=== PATIENT | female | born 2000 | race African-American/Black ===

== ENCOUNTER 2021-08-27 04:22 | Inpatient (IN) | payer OTHER ==
[2021-08-27 04:51] VITALS: BMI 31.6
[2021-08-27] MEDS ORDERED: Ondansetron PF 4 MG/2 ML Vial IVP PRN ×2 (04:55→07:22)
[2021-08-27] MEDS ORDERED: Butorphanol Tartrate 1 MG/ML VIAL SLOW IVP PRN (04:55)
[2021-08-27] MEDS ORDERED: Promethazine HCl 25 MG/ML VIAL IM PRN ×2 (04:55→07:22)
[2021-08-27] MEDS ORDERED: Ibuprofen 800 MG TAB PO PRN (04:55)
[2021-08-27] MEDS ORDERED: Acetaminophen 500 MG TAB PO PRN (04:55)
[2021-08-27] MEDS ORDERED: hydrALAZINE 20 MG/ML VIAL SLOW IVP PRN ×2 (04:55→07:22)
[2021-08-27] MEDS ORDERED: Lidocaine 1% (PF) 30 ML VIAL SC PRN (04:55)
[2021-08-27] MEDS ORDERED: Misoprostol 200 MCG TAB PR PRN (04:55)
[2021-08-27] MEDS ORDERED: Fentanyl 2 mcg/Bup 0.1% Cadd 0 ML ONE (05:00)
[2021-08-27] MEDS ORDERED: Penicillin G Potassium 5 MILL.UNITS in Sodium Chloride 0.9% 100 ML IVPB SCH (05:00)
[2021-08-27] MEDS ORDERED: NS w/ Oxytocin 30 units 500 ML IV SCH ×2 (05:00→07:22)
[2021-08-27] MEDS ORDERED: Penicillin G 2.5 MILL.units 2.5 MILL.UNITS in Premix Bag 1 BAG IVPB SCH (05:00)
[2021-08-27] MEDS ORDERED: Lactated Ringer's 1,000 ML IV SCH (05:00)
[2021-08-27] MEDS ORDERED: Penicillin G Potassium 5 MILL.UNITS VIAL ONE (05:01)
[2021-08-27] MEDS ORDERED: NS w/ Oxytocin 30 units 500 ML ONE (05:03)
[2021-08-27 05:17] LABS: Hemoglobin 10.5 g/dL (12.0-15.5); Mean Corpuscular HGB CONC 30.8 g/dL (32.0-36.0); Mean Corpuscular Hemoglobin 24.4 pg (27.0-33.0); Mean Corpuscular Volume 79.1 fl (81.6-98.3); Mean Platelet Volume 10.5 fl (7.4-10.4); Platelet Count 226 10x3/uL (150-450); RBC Distribution Width 15.5 % (11.5-14.5); Red Blood Cell (RBC) Count 4.31 10x6/uL (3.90-5.03); White Blood Cell (WBC) Count 14.4 10x3/uL (3.5-10.5)
[2021-08-27 05:48] LABS: Hep B Surf Ag Non-Reactive S/CO (NonReactive)
[2021-08-27 05:49] LABS: Syphilis Antibody Nonreactive (Nonreactive); Syphilis Antibody Index 0.03 S/CO (<1.00 Non-Reactive)
[2021-08-27 05:50] LABS: HBSAg Index 0.19 S/CO (0-0.99)
[2021-08-27] MEDS ORDERED: Benzocaine-Menthol 82.5 ML CAN TOP PRN (07:22)
[2021-08-27] MEDS ORDERED: HYDROcodone/Acetaminophen 5/325 mg Tablet PO PRN ×2 (07:22)
[2021-08-27] MEDS ORDERED: diphenhydrAMINE 25 MG CAP PO PRN (07:22)
[2021-08-27] MEDS ORDERED: Boostrix 0.5 ML (Tdap) VIAL IM ONE (07:22)
[2021-08-27] MEDS ORDERED: Milk Of Magnesia 30 ML UDCUP PO PRN (07:22)
[2021-08-27] MEDS ORDERED: Bisacodyl 10 MG SUPP PR PRN (07:22)
[2021-08-27] MEDS: Prenatal Vitamin 1 TAB PO SCH (08:49)
[2021-08-27] MEDS: Ibuprofen 800 MG TAB PO SCH ×2 (08:49→18:49)
[2021-08-27] MEDS: Docusate Calcium (SURFAK) 240 MG CAP PO SCH ×2 (08:49→20:43)
[2021-08-27] MEDS: Ferrous Sulfate 325 MG TAB PO SCH ×2 (10:46→18:46)
[2021-08-28] MEDS: Ibuprofen 800 MG TAB PO SCH ×3 (01:00→17:21)
[2021-08-28] MEDS: Ferrous Sulfate 325 MG TAB PO SCH ×2 (09:00→17:21)
[2021-08-28] MEDS: Docusate Calcium (SURFAK) 240 MG CAP PO SCH ×2 (09:00→22:14)
[2021-08-28] MEDS: Prenatal Vitamin 1 TAB PO SCH (09:00)
[2021-08-29] MEDS: Ibuprofen 800 MG TAB PO SCH (04:06)
[2021-08-29 07:40] VITALS: BP 117/56; TEMP 98.6
[2021-08-29] MEDS: Docusate Calcium (SURFAK) 240 MG CAP PO SCH (08:57)
[2021-08-29] MEDS: Prenatal Vitamin 1 TAB PO SCH (08:57)
[2021-08-29] MEDS: Ferrous Sulfate 325 MG TAB PO SCH (08:59)
[2021-08-29] MEDS ORDERED: Ibuprofen 800 MG TAB PO SCH (12:00)
== END 2021-08-29 11:50 | disposition home or self-care (01) | DRG 807 ==
LOC: CSHLD/OP 04:22 → CSHLD 04:40 → CSHPED 17:30
PROVIDERS: ADMIT Family Medicine; ATTEND Family Medicine
PROC: 10E0XZZ Delivery of Products of Conception, External Approach (ICD-10-PCS; principal; 2021-08-27)
PROC: 0UQMXZZ Repair Vulva, External Approach (ICD-10-PCS; 2021-08-27)
DX: O99.824 Streptococcus B carrier state complicating childbirth (principal); Z37.0 Single live birth; Z3A.39 39 weeks gestation of pregnancy; Z20.822 Contact with and (suspected) exposure to COVID-19; O70.0 First degree perineal laceration during delivery
CPT/HCPCS: 51701; 85027; 86780; 86850; 86900; 86901; 87340; 96372; 99283; 99285; J2001; J2270; J2540; J2550; J2590; J3430

== ENCOUNTER 2025-08-28 23:41 | Emergency (ER) | payer OTHER, SELFPAY ==
[2025-08-29] MEDS ORDERED: Ibuprofen 200 MG TAB ONE (00:14)
== END 2025-08-29 01:11 | disposition home or self-care (01) ==
LOC: CSHERS 23:41
DX: S13.9XXA Sprain of joints and ligaments of unspecified parts of neck, initial encounter (principal); S90.01XA Contusion of right ankle, initial encounter; V89.2XXA Person injured in unspecified motor-vehicle accident, traffic, initial encounter
CPT/HCPCS: 72125